=== PATIENT | male | born 1950 | race Caucasian/White ===

== ENCOUNTER 2018-02-11 05:45 | Day surgery (SDC) | payer MEDICAID, MEDICARE ==
[2018-02-11 06:09] VITALS: BMI 24.1
[2018-02-11] MEDS ORDERED: Bupivacaine 0.25% 20 ML INJ IJ ONE (07:24)
[2018-02-11] MEDS ORDERED: Lidocaine/Epinephrine 1% 1:100000 10 ML IJ ONE (07:24)
[2018-02-11] MEDS ORDERED: ceFAZolin IV 2 gm in Dextrose 2 GM/50 ML BAG IVPB ONE (07:25)
[2018-02-11] MEDS ORDERED: Midazolam 2 MG/2 ML VIAL ONE (08:01)
[2018-02-11] MEDS ORDERED: Propofol 10 mg/ml Inj (20 ML) ONE (08:01)
[2018-02-11] MEDS ORDERED: Succinylcholine Chloride 20 mg/ml Syr (5 ml) IV ONE (08:03)
[2018-02-11] MEDS ORDERED: Neostigmine Methylsulfate 3mg/3ml Syringe IV ONE (13:55)
[2018-02-11] MEDS: HYDROmorphone 0.5 mg/0.5 ml ISec IVP PRN ×2 (14:34→15:22)
[2018-02-11 16:57] VITALS: O2SAT 97
--- NOTE | 2018-02-11 17:00 | PCM.SURG1 ---
Surgeon's Initial Post Op Note - Surgeon's Notes Surgeon: Lele Oconnell MD Acting Instructor: LUNA Blakely Type of Anesthesia: General Endo Pre-Operative Diagnosis: B/L inguinal hernia Operative Findings: B/L inguinal hernia. Right femoral hernia. Right Obturator Hernia Post-Operative Diagnosis: B/L inguinal hernia. Right femoral hernia. Right Obturator Hernia Operation Performed: Robotic B/L inguinal hernia repair with mesh. Robotic Right femoral hernia repair with mesh. Robotic Right Obturator Hernia repair with mesh. Lap B/L TAP block placement Specimen/Specimens Removed: Bilateral inguinal hernial sac and Lipoma of cord. Femoral hernial sac. Obturator hernial sac Estimated Blood Loss: EBL {In ML}: 10 Blood Products Given: N/A Drains Used: No Drains Post-Op Condition: Good Date of Surgery/Procedure: 02/11/18 Time of Surgery/Procedure: 17:02
[2018-02-11 17:56] VITALS: BP 120/79; PULSE 78; RESP 20; TEMP 98.2
--- NOTE | 2018-02-12 03:44 | OP ---
PROCEDURE DATE: 02/11/2018 PREOPERATIVE DIAGNOSIS: Bilateral inguinal hernia. POSTOPERATIVE DIAGNOSES: 1. Left indirect and direct inguinal hernia. 2. Right indirect inguinal hernia containing lipoma on the cord. 3. Right femoral hernia. 4. Right obturator hernia. PROCEDURES DONE: 1. Robotic bilateral inguinal hernia with a mesh. 2. Robotic right femoral hernia repair with a mesh. 3. Robotic right obturator hernia repair with a mesh. 4. Laparoscopic bilateral transverse abdominis plane block placement. SURGEON: Stephen Oconnell MD COIN COLLECTOR: JARETT Newman TYPE OF ANESTHESIA: General endotracheal tube anesthesia. ESTIMATED BLOOD LOSS: Around 10 mL. DRAIN: None. PATHOLOGY: 1. The bilateral inguinal hernial sac and content was sent for the pathology. 2. Femoral hernia. 3. Right obturator hernia content and sac was sent for the pathology. COMPLICATIONS: None. INTRAOPERATIVE FINDINGS: The patient had bilateral inguinal hernia of the right side at indirect inguinal hernia containing the lipoma of the cord and the left side had direct and indirect inguinal hernia, and the patient also had a femoral hernia on the right side as well as small obturator hernia on the right side. DESCRIPTION OF PROCEDURE: On intraoperative steps, this 67-year-old male was diagnosed with bilateral inguinal hernias. The patient was consented for the robotic bilateral inguinal hernia repair with the mesh, brought to the OR, placed supine on the operating table. After induction of the anesthesia, the abdomen prepped and draped in the usual sterile fashion. Supraumbilical incision was made. After incising the skin, subcutaneous tissue and the fascia, the robotic camera port was placed. Another 3/8 mm port was placed in the upper abdomen. Robot was brought in. Camera arm as well as arm 1 and arm 2 were docked. The peritoneum was dissected from the right ASIS up to the left ASIS, and the dissection was carried down medially up to the space of Retzius and on the left side, the peritoneal dissection was done. Vas deferens and spermatic cord vessels were dissected. The peritoneal sac was reduced back into the peritoneal cavity. The patient had extensive adhesion in the pelvis that was dissected. Now, the dissection was continued on the right side. The lateral right pelvic wall was dissected. The peritoneal reflection with vas deferens and spermatic cord vessels was dissected. The patient had a large lipoma of the cord on the right side that was also reduced back into the peritoneal cavity and it was excised. The patient was found to have a femoral hernia, and the femoral hernial content was reduced back into the peritoneal cavity, and it was completely excised. During the deep dissection, the patient was found to have the obturator hernia on the right side that was also reduced back into the peritoneal cavity. Now, the right and left anatomical mesh was placed. The mesh was implanted into the peritoneal cavity. After proper implantation of the mesh to cover the right obturator, right femoral and right inguinal hernia as well as the left inguinal hernia, the peritoneum was sutured with 2-0 Vicryl. Now, the procedure was converted into laparoscopy, and bilateral TAP block was given. The 30:30 mL of Marcaine was given on both sides, and the specimen was sent off the table for pathology. The umbilical port site was closed in two layers, the fascia with 0 Vicryl sutures, skin with 4-0 Monocryl at all the port sites, and dry sterile dressing was applied. The patient tolerated the procedure well. Count of instruments and gauze was correct. There was no apparent complication. The patient was extubated in the OR, sent to the postanesthesia care unit in stable condition. Stephen Oconnell MD
== END 2018-02-11 17:40 | disposition home or self-care (01) ==
LOC: C.SDS 05:45
PROVIDERS: ATTEND Surgery Surgical Critical Care
DX: K40.20 Bilateral inguinal hernia, without obstruction or gangrene, not specified as recurrent (principal); K41.90 Unilateral femoral hernia, without obstruction or gangrene, not specified as recurrent; D17.6 Benign lipomatous neoplasm of spermatic cord; K45.8 Other specified abdominal hernia without obstruction or gangrene
CPT/HCPCS: 49505; 49550; 88302; C1781; J0690; J1170; J2001; J2250; J2405; J2704; J2710; J3010